=== PATIENT | female | born 1985 | race Caucasian/White ===

== ENCOUNTER → 2024-09-17 | Outpatient (CLI) | payer BC ==
[2024-09-18 09:37] LABS: Candida Group, PCR NOT DETECTED (NOT DETECT); Candida glabrata-krusei, PCR NOT DETECTED (NOT DETECT)
[2024-09-18 10:05] LABS: Bacterial Vaginosis PCR Positive (NEGATIVE)
== END ==
LOC: LAB 15:38 → LAB SHORT 15:38
PROVIDERS: Emergency Medicine
DX: N89.8 Other specified noninflammatory disorders of vagina (principal)
CPT/HCPCS: 81515